=== PATIENT | female | born 1960 | race Hispanic/Latino ===

== ENCOUNTER 2018-12-09 23:24 | Inpatient (IN) | payer SELFPAY ==
[~2018-12-09] VITALS: Ht 160 cm; Wt 96.6 kg
[2018-12-09 23:56] LABS: BASOPHILS % (AUTO) 0.7 % (0.0-5.0); EOSINOPHILS % (AUTO) 1.2 % (0.0-8.0); HEMATOCRIT 44.7 % (36-48); LYMPHOCYTES % (AUTO) 24.2 % (21.0-51.0); MEAN CORPUSCULAR HEMOGLOBIN 29.1 pg (27.0-33.0); MEAN CORPUSCULAR HGB CONC 33.6 g/dL (32.0-36.0); MEAN CORPUSCULAR VOLUME 86.5 fL (79-99); MONOCYTES % (AUTO) 9.3 % (3.0-13.0); NEUTROPHILS % (AUTO) 64.6 % (40.0-77.0); PLATELET COUNT (AUTO) 275 K/uL (130-400); RED BLOOD CELL COUNT(AUTO) 5.16 MIL/uL (4.00-5.50); RED CELL DISTRIBUTION WIDTH 14.1 % (11.0-15.5); WHITE BLOOD COUNT (AUTO) 9.6 K/uL (4.8-10.8)
[2018-12-09 23:57] LABS: APPEARANCE,URINE Clear (CLEAR); BILIRUBIN,URINE Negative (NEGATIVE); COLOR,URINE Yellow (YELLOW); GLUCOSE, URINE (UA) Negative (NEGATIVE); KETONES,URINE Negative (NEGATIVE); LEUKOCYTE ESTERASE ,URINE Moderate (NEGATIVE); NITRATE,URINE Negative (NEGATIVE); OCCULT BLOOD,URINE Trace (NEGATIVE); PROTEIN,URINE Negative (NEGATIVE)
[2018-12-10 00:05] LABS: AMORPHOUS SEDIMENT,UR Few /LPF (None Seen); BACTERIA,URINE Few /HPF (None Seen); CREATININE 1.2 mg/dL (0.5-1.5); MUCUS,URINE Few LPF (None Seen); POTASSIUM 3.5 mmol/L (3.5-5.1); RBC,URINE 0-1 /HPF (0-1); SQUAMOUS EPITHELIAL CELL,UR Moderate /HPF (0-2)
[2018-12-10 00:09] LABS: ALBUMIN 3.1 g/dL (3.5-5.0); BILIRUBIN,TOTAL 0.3 mg/dL (0.2-1.0); TOTAL PROTEIN, SERUM 6.4 g/dL (6.0-8.3)
[2018-12-10 00:11] LABS: INR 0.93 (0.85-1.15); PARTIAL THROMBOPLASTIN TIME 27.8 SEC (26.3-35.5); PROTHROMBIN TIME 9.8 SEC (9.6-11.6)
[2018-12-10] MEDS ORDERED: ONDANSETRON HCL 4 MG/2 ML VIAL ONE (00:23)
[2018-12-10] MEDS ORDERED: ASPIRIN 325 MG TABLET ONE (00:23)
[2018-12-10] MEDS ORDERED: SODIUM CHLORIDE 0.9% 1000ML 1,000 ML IV ONE (00:24)
[2018-12-10] MEDS ORDERED: ONDANSETRON HCL 4 MG/2 ML VIAL IV PRN (01:00)
[2018-12-10] MEDS ORDERED: HYDRALAZINE HCL 20 MG/ML VIAL IV PRN (01:00)
[2018-12-10] MEDS ORDERED: ACETAMINOPHEN 325 MG TAB PO PRN ×2 (01:00)
[2018-12-10] MEDS ORDERED: MORPHINE SULFATE 4 MG/1ML SYG IV PRN (01:00)
[2018-12-10] MEDS: NITROGLYCERIN 1GM/1 INCH PACKET TD SCH ×3 (01:00→16:26)
[2018-12-10] MEDS ORDERED: MORPHINE SULFATE 2 MG/ML 1ML SYG IV PRN (01:00)
[2018-12-10] MEDS ORDERED: NITROGLYCERIN 1GM/1 INCH PACKET TD ONE (02:05)
[2018-12-10 04:35] LABS: CREATINE KINASE, TOTAL 46 U/L (21-232); MYOGLOBIN 40 ng/mL (10-92); TROPONIN I < 0.04 ng/mL (0.00-0.06)
--- NOTE | 2018-12-10 04:44 | NUR ---
ADMIT Admitted from ER,aao x 3,denies chest pain or discomfort.Admission care rendered.Placed on telemetry.
[2018-12-10 04:45] VITALS: BP 131/75
[2018-12-10 07:30] VITALS: BP 91/56
[2018-12-10 07:34] LABS: CREATINE KINASE, TOTAL 39 U/L (21-232); MYOGLOBIN 42 ng/mL (10-92); TROPONIN I < 0.04 ng/mL (0.00-0.06)
[2018-12-10] MEDS ORDERED: NICOTINE 7 MG/ 24 HR PATCH TD SCH (09:00)
[2018-12-10] MEDS ORDERED: FAMOTIDINE/PF 20 MG/2 ML VIAL IV SCH (09:00)
[2018-12-10] MEDS ORDERED: METOPROLOL TARTRATE 25 MG TAB PO SCH (09:00)
[2018-12-10] MEDS ORDERED: ENOXAPARIN SODIUM 40 MG/0.4 ML SYRINGE SQ SCH (09:00)
[2018-12-10] MEDS ORDERED: ASPIRIN 325 MG TABLET PO SCH (09:00)
[2018-12-10] MEDS ORDERED: ASPI-1197 PO (09:57)
[2018-12-10 11:00] VITALS: BP 109/65
--- NOTE | 2018-12-10 16:00 | NUR ---
DISCHARGE INSTRUCTIONS GIVEN. PATIENT INSTRUCTED TO FOLLOW UP WITH [facility]. INSTRUCTED TO FOLLOW UP WITH [employer] HELPER AND A COPY OF MD WAS GIVEN TO PATIENT DAUGHTER YARELY. INSTRUCTED ON TAKING AN ASPIRIN 81 MG DAILY ORDERED. PATIENT AND DAUGHTER . IV DISCONTINUED WITH INNER CANNULA INTACT. ALL QUESTIONS ANSWERED.
--- NOTE | 2018-12-10 17:00 | NUR ---
PATIENT FORGOT TO TAKE PRESCRIPTION FOR ASPIRIN. NOTIFIED DAUGHTER ON FACESHEET VIA PHONE AND SHE STATED.. " ITS OK I WILL BUY HER ASPIRIN OVER THE COUNTER CAUSE MY MOM HAS NO INSURANCE"
== END 2018-12-10 17:05 | disposition home or self-care (01) | DRG 313 ==
LOC: EDH 23:24 → EDHIP 23:25 → 3BH 12-10 04:25
PROVIDERS: ADMIT Internal Medicine; ATTEND Internal Medicine
DX: R07.89 Other chest pain (principal); E03.9 Hypothyroidism, unspecified; F17.210 Nicotine dependence, cigarettes, uncomplicated; I10 Essential (primary) hypertension
CPT/HCPCS: 36415; 71045; 80053; 81001; 82550; 83690; 83874; 84484; 85025; 85610; 85730; 93005; G0378; J1650; J2405; J3490; J7030